=== PATIENT | male | born 1935 | race Asian ===

== ENCOUNTER 2022-11-11 04:49 | Inpatient (IN) | payer MEDICARE, OTHER ==
[~2022-11-11] VITALS: Ht 177.8 cm; Wt 73.9 kg
[~2022-11-11 04:49] MED LIST: AZITHROMYCIN 500MG/ D5W 250ML IVPB **ER PYXIS ONLY IV ONE; CEFTRIAXONE /D5W 50ML IVPB **ER PYXIS IV ONE
[2022-11-11] MEDS ORDERED: LEVO500T90 PO (04:58)
[2022-11-11 05:09] LABS: CHLORIDE 107 mmol/L (98-107); POTASSIUM 3.6 mmol/L (3.5-5.1); SODIUM SERUM 137 mmol/L (136-145)
[2022-11-11 05:10] LABS: CALCIUM 7.9 mg/dL (8.5-10.1); CARBON DIOXIDE 15 mmol/L (21-32); CREATININE 5.2 mg/dL (0.6-1.3); GLUCOSE 142 mg/dL (74-106); UREA NITROGEN, BLOOD 74 mg/dL (7-18)
[2022-11-11 05:11] LABS: ALANINE AMINOTRANSFERASE 33 U/L (16-63); ALBUMIN 2.4 g/dL (3.4-5.0); ALKALINE PHOSPHATASE 72 U/L (50-136); ASPARTATE AMINOTRANSFERASE 32 U/L (15-37); BILIRUBIN,DIRECT 0.3 mg/dL (0.0-0.2); BILIRUBIN,TOTAL 0.5 mg/dL (0.2-1.0); NT-PRO BNP 1356 pg/mL (0-125)
[2022-11-11 05:12] LABS: TOTAL PROTEIN, SERUM 6.4 g/dL (6.4-8.2)
[2022-11-11 05:17] LABS: *CLARITY,URINE SLIGHTLY CLOUDY (CLEAR); *COLOR,URINE YELLOW (YELLOW)
[2022-11-11 05:18] LABS: *BILIRUBIN,URIN NEGATIVE (NEGATIVE); *BLOOD, URINE 2+ (NEGATIVE); *KETONES,URINE NEGATIVE (NEGATIVE); *PROTEIN,URINE 2+ (NEGATIVE); *UROBILINOGEN,URINE 0.2 E.U./dl (NORMAL); LEUKOCYTE ESTERASE ,URINE 2+ (NEGATIVE); NITRITE, URINE NEGATIVE (NEGATIVE); PH,URINE 5.5 (5.0-8.0); UGLUCOSE NEGATIVE (NEGATIVE)
[2022-11-11 05:19] LABS: BACTERIA,URINE FEW /HPF (NONE SEEN); RBC,URINE TNTC /HPF (0-3); SQUAMOUS EPITHELIAL CELL,UR FEW /HPF (NONE SEEN); WBC,URINE TNTC /HPF (0-3)
[2022-11-11 05:20] LABS: HEMOGLOBIN 10.2 g/dL (12.5-16.3); RED BLOOD CELL COUNT(AUTO) 3.35 MIL/uL (4.06-5.63); WHITE BLOOD COUNT (AUTO) 8.4 K/uL (3.6-10.2)
[2022-11-11 05:21] LABS: HEMATOCRIT 30.1 % (36.7-47.1); MEAN CORPUSCULAR HEMOGLOBIN 30.5 uug (23.8-33.4); MEAN CORPUSCULAR HGB CONC 34 g/dL (32.5-36.3); MEAN CORPUSCULAR VOLUME 89.8 fL (73.0-96.2); PLATELET COUNT (AUTO) 173 K/uL (152-348); RED CELL DISTRIBUTION WIDTH 13.6 % (12.1-16.2)
[2022-11-11 05:22] LABS: BASOPHILS % (AUTO) 0.2 % (0.0-2.0); LYMPHOCYTES % (AUTO) 2.5 % (20.5-51.5); MONOCYTES % (AUTO) 7.4 % (0.0-11.0); NEUTROPHILS % (AUTO) 89.9 % (38.5-71.5)
[2022-11-11] MEDS ORDERED: ENOXAPARIN SODIUM 80 MG/0.8 ML DISP.SYRIN SQ ONE (05:30)
[2022-11-11] MEDS ORDERED: ENOXAPARIN SODIUM 100 MG/ML DISP.SYRIN SQ ONE (05:31)
[2022-11-11] MEDS ORDERED: ASPIRIN 81 MG TAB.CHEW ONE (05:33)
[2022-11-11] MEDS ORDERED: REMEDY ESSENTIAL ZINC PASTE 113 GM TP PRN (05:45)
[2022-11-11] MEDS ORDERED: ONDANSETRON 4 MG/2 ML VIAL IV PRN (05:45)
[2022-11-11] MEDS ORDERED: MAGNESIUM HYDROXIDE 30 ML LIQUID UDC PO PRN (05:45)
[2022-11-11] MEDS ORDERED: HEPARIN/D5W 25000 UNITS/500 ML BAG IV ONE (05:45)
[2022-11-11] MEDS ORDERED: HEPARIN/D5W DRIP 500 ML ONE (06:42)
[2022-11-11] MEDS ORDERED: HEPARIN SODIUM,PORCINE 5,000 UNITS/ML VIAL ONE (07:17)
[2022-11-11] MEDS ORDERED: PANTOPRAZOLE SODIUM 40 MG VIAL IV SCH (09:00)
[2022-11-11] MEDS: ASPIRIN 81 MG TAB.CHEW PO SCH (09:41)
[2022-11-11 10:15] VITALS: BP 92/59; TEMP 97.6; O2SAT 97
[2022-11-11] MEDS ORDERED: VANCOMYCIN IV 1,000 MG in IV DEXTROSE 5% 250 ML IV ONE (11:30)
[2022-11-11 11:51] VITALS: BP 104/66; TEMP 97.9; O2SAT 98
[2022-11-11] MEDS: MEROPENEM 500 MG in IV NORMAL SALINE 50 ML IV SCH ×2 (14:00→15:02)
[2022-11-11 15:40] LABS: BASOPHILS % (AUTO) 0.3 % (0.0-2.0); EOSINOPHILS % (AUTO) 0.1 % (0.0-7.0); HEMOGLOBIN 9.4 g/dL (12.5-16.3); LYMPHOCYTES % (AUTO) 9.7 % (20.5-51.5); MEAN CORPUSCULAR HEMOGLOBIN 30.8 uug (23.8-33.4); MEAN CORPUSCULAR HGB CONC 34 g/dL (32.5-36.3); MEAN CORPUSCULAR VOLUME 91.9 fL (73.0-96.2); MONOCYTES # (AUTO) 0.8 K/uL (0.1-1.30); MONOCYTES % (AUTO) 7.6 % (0.0-11.0); NEUTROPHILS # (AUTO) 8.4 K/uL (1.8-8.9); NEUTROPHILS % (AUTO) 82.3 % (38.5-71.5); PLATELET COUNT (AUTO) 155 K/uL (152-348); RED BLOOD CELL COUNT(AUTO) 3.05 MIL/uL (4.06-5.63); RED CELL DISTRIBUTION WIDTH 13.6 % (12.1-16.2); WHITE BLOOD COUNT (AUTO) 10.2 K/uL (3.6-10.2)
[2022-11-11 15:51] LABS: DIFFERENTIAL COMMENT 1
[2022-11-11 16:00] VITALS: BP 103/68; TEMP 98.1; O2SAT 97
[2022-11-11 16:06] LABS: IRON, SERUM 14 ug/dL (50-175)
[2022-11-11 16:37] LABS: FERRITIN 1314 ng/mL (26-388)
[2022-11-11] MEDS: IV NS 1000 ML 1,000 ML IV PRN (19:00)
[2022-11-11 20:00] VITALS: BP 114/71; TEMP 98.1; O2SAT 97
[2022-11-11] MEDS: ZOLPIDEM 5 MG TABLET PO PRN (21:18)
[2022-11-11 22:06] LABS: *BILIRUBIN,URIN NEGATIVE (NEGATIVE); *BLOOD, URINE 2+ (NEGATIVE); *KETONES,URINE NEGATIVE (NEGATIVE); *PROTEIN,URINE 2+ (NEGATIVE); *UROBILINOGEN,URINE 0.2 E.U./dl (NORMAL); LEUKOCYTE ESTERASE ,URINE 2+ (NEGATIVE); NITRITE, URINE POSITIVE (NEGATIVE); UGLUCOSE NEGATIVE (NEGATIVE)
[2022-11-11 22:35] LABS: *CLARITY,URINE CLEAR (CLEAR); *COLOR,URINE LIGHT YELLOW (YELLOW)
[2022-11-11 22:38] LABS: BACTERIA,URINE MODERATE /HPF (NONE SEEN); RBC,URINE 20-50 /HPF (0-3); WBC,URINE 50-80 /HPF (0-3)
[2022-11-11 22:39] LABS: SQUAMOUS EPITHELIAL CELL,UR MODERATE /HPF (NONE SEEN)
[2022-11-11 22:50] LABS: *CREATININE,URINE 36.1 mg/dL (30-125)
[2022-11-11 23:20] LABS: *URINE TOTAL PROTEIN RANDOM 57.2 mg/dL (<150/24HR)
[2022-11-12] VITALS: BP 106/68; TEMP 98; O2SAT 97
[2022-11-12] MEDS ORDERED: HEPARIN SODIUM,PORCINE/PF 50 UNIT/5 ML SYR IV ONE (01:45)
[2022-11-12] MEDS: MEROPENEM 500 MG in IV NORMAL SALINE 50 ML IV SCH ×2 (02:00→14:35)
[2022-11-12 04:33] VITALS: BP 121/76; TEMP 99; O2SAT 99
[2022-11-12] MEDS: PANTOPRAZOLE SODIUM 40 MG TABLET.DR PO SCH (07:07)
[2022-11-12 09:17] LABS: BASOPHILS % (AUTO) 0.3 % (0.0-2.0); EOSINOPHILS % (AUTO) 0.5 % (0.0-7.0); HEMATOCRIT 28.6 % (36.7-47.1); HEMOGLOBIN 9.6 g/dL (12.5-16.3); LYMPHOCYTES # (AUTO) 0.6 K/uL (0.8-4.8); LYMPHOCYTES % (AUTO) 8.9 % (20.5-51.5); MEAN CORPUSCULAR HEMOGLOBIN 30.8 uug (23.8-33.4); MEAN CORPUSCULAR HGB CONC 34 g/dL (32.5-36.3); MEAN CORPUSCULAR VOLUME 91.8 fL (73.0-96.2); MONOCYTES # (AUTO) 0.5 K/uL (0.1-1.30); MONOCYTES % (AUTO) 6.8 % (0.0-11.0); NEUTROPHILS % (AUTO) 83.5 % (38.5-71.5); PLATELET COUNT (AUTO) 155 K/uL (152-348); RED BLOOD CELL COUNT(AUTO) 3.12 MIL/uL (4.06-5.63); RED CELL DISTRIBUTION WIDTH 13.8 % (12.1-16.2); WHITE BLOOD COUNT (AUTO) 7.2 K/uL (3.6-10.2)
[2022-11-12] MEDS: METOPROLOL SUCCINATE XL 25 MG TAB.SR.24H PO SCH (09:20)
[2022-11-12] MEDS: ASPIRIN 81 MG TAB.CHEW PO SCH (09:20)
[2022-11-12 09:36] LABS: DIFFERENTIAL COMMENT 1
[2022-11-12 09:42] LABS: ALANINE AMINOTRANSFERASE 26 U/L (16-63); ALBUMIN 2.1 g/dL (3.4-5.0); ALKALINE PHOSPHATASE 63 U/L (50-136); ASPARTATE AMINOTRANSFERASE 27 U/L (15-37); BILIRUBIN,TOTAL 0.3 mg/dL (0.2-1.0); CALCIUM 7.8 mg/dL (8.5-10.1); CARBON DIOXIDE 15 mmol/L (21-32); CHLORIDE 110 mmol/L (98-107); CREATININE 4.9 mg/dL (0.6-1.3); GLUCOSE 144 mg/dL (74-106); MAGNESIUM 1.9 mg/dL (1.8-2.4); PHOSPHOROUS 4.6 mg/dL (2.5-4.9); SODIUM SERUM 139 mmol/L (136-145); TOTAL PROTEIN, SERUM 5.6 g/dL (6.4-8.2); UREA NITROGEN, BLOOD 66 mg/dL (7-18); VANCOMYCIN,RANDOM 10.5 ug/mL (18.0-26.0)
[2022-11-12] MEDS ORDERED: VANCOMYCIN IV 750 MG in IV DEXTROSE 5% 250 ML IV ONE (10:00)
[2022-11-12 11:13] VITALS: BP 113/67; TEMP 98.7; O2SAT 98
[2022-11-12] MEDS: HEPARIN/D5W DRIP 500 ML IV PRN ×2 (11:24→11:26)
[2022-11-12] MEDS: IV NS 1000 ML 1,000 ML IV PRN (14:40)
[2022-11-12 15:10] VITALS: BP 113/70; TEMP 98.2; O2SAT 97
[2022-11-12 20:00] VITALS: BP 137/65; TEMP 98; O2SAT 99
[2022-11-12] MEDS: ATORVASTATIN 40 MG TABLET PO SCH (20:39)
[2022-11-12] MEDS: ACETAMINOPHEN 325 MG TABLET PO PRN (20:39)
[2022-11-12] MEDS: ZOLPIDEM 5 MG TABLET PO PRN ×2 (20:39→22:07)
[2022-11-13] VITALS: BP 122/68; TEMP 97.9; O2SAT 97
[2022-11-13] MEDS: MEROPENEM 500 MG in IV NORMAL SALINE 50 ML IV SCH ×2 (01:34→13:03)
[2022-11-13] MEDS: IV NS 1000 ML 1,000 ML IV PRN (03:42)
[2022-11-13 04:30] VITALS: BP_SYST 126; BP_SYST 76; BP_DIAS 70; TEMP 98.2; O2SAT 97
[2022-11-13] MEDS: PANTOPRAZOLE SODIUM 40 MG TABLET.DR PO SCH (06:14)
[2022-11-13 07:12] LABS: BASOPHILS % (AUTO) 0.4 % (0.0-2.0); EOSINOPHILS # (AUTO) 0.1 K/uL (0.0-0.7); EOSINOPHILS % (AUTO) 0.8 % (0.0-7.0); HEMATOCRIT 24.6 % (36.7-47.1); HEMOGLOBIN 8.3 g/dL (12.5-16.3); LYMPHOCYTES # (AUTO) 0.8 K/uL (0.8-4.8); LYMPHOCYTES % (AUTO) 12.4 % (20.5-51.5); MEAN CORPUSCULAR HEMOGLOBIN 30.9 uug (23.8-33.4); MEAN CORPUSCULAR HGB CONC 34 g/dL (32.5-36.3); MEAN CORPUSCULAR VOLUME 91.2 fL (73.0-96.2); MONOCYTES # (AUTO) 0.6 K/uL (0.1-1.30); NEUTROPHILS # (AUTO) 4.7 K/uL (1.8-8.9); NEUTROPHILS % (AUTO) 76.4 % (38.5-71.5); PLATELET COUNT (AUTO) 159 K/uL (152-348); RED CELL DISTRIBUTION WIDTH 13.7 % (12.1-16.2); WHITE BLOOD COUNT (AUTO) 6.2 K/uL (3.6-10.2)
[2022-11-13 07:21] LABS: DIFFERENTIAL COMMENT 1
[2022-11-13 07:24] LABS: CALCIUM 8.1 mg/dL (8.5-10.1); CARBON DIOXIDE 16 mmol/L (21-32); CHLORIDE 111 mmol/L (98-107); CREATININE 4.7 mg/dL (0.6-1.3); GLUCOSE 112 mg/dL (74-106); MAGNESIUM 1.9 mg/dL (1.8-2.4); PHOSPHOROUS 4.4 mg/dL (2.5-4.9); POTASSIUM 4.1 mmol/L (3.5-5.1); SODIUM SERUM 139 mmol/L (136-145); UREA NITROGEN, BLOOD 58 mg/dL (7-18)
[2022-11-13] MEDS: ASPIRIN 81 MG TAB.CHEW PO SCH (08:54)
[2022-11-13] MEDS: METOPROLOL SUCCINATE XL 25 MG TAB.SR.24H PO SCH (08:55)
[2022-11-13] MEDS ORDERED: VANCOMYCIN IV 750 MG in IV DEXTROSE 5% 250 ML IV ONE (10:00)
[2022-11-13 11:35] VITALS: BP_SYST 106; BP_DIAS 61; BP_DIAS 71; TEMP 97.9; O2SAT 97
[2022-11-13] MEDS: SODIUM BICARBONATE 8.4% 100 MEQ in IV D5 1/2 NS 1000 ML 1,000 ML IV PRN (13:01)
[2022-11-13] MEDS: ACETAMINOPHEN 325 MG TABLET PO PRN ×2 (14:14→21:34)
[2022-11-13] MEDS: ALPRAZOLAM 0.25 MG TABLET PO PRN ×2 (14:14→21:34)
[2022-11-13 16:00] VITALS: BP 115/69; TEMP 98.6; O2SAT 97
[2022-11-13 20:00] VITALS: BP 121/75; TEMP 98.6; O2SAT 97
[2022-11-13] MEDS: ATORVASTATIN 40 MG TABLET PO SCH (21:14)
[2022-11-14] VITALS: BP 128/68; TEMP 97.9; O2SAT 97
[2022-11-14] MEDS: MEROPENEM 500 MG in IV NORMAL SALINE 50 ML IV SCH ×2 (01:11→13:46)
[2022-11-14 05:00] VITALS: BP 125/66; TEMP 98.2; O2SAT 97
[2022-11-14] MEDS: PANTOPRAZOLE SODIUM 40 MG TABLET.DR PO SCH (06:18)
[2022-11-14 08:09] LABS: CALCIUM 7.5 mg/dL (8.5-10.1); CARBON DIOXIDE 21 mmol/L (21-32); CHLORIDE 114 mmol/L (98-107); CREATININE 4.8 mg/dL (0.6-1.3); GLUCOSE 112 mg/dL (74-106); MAGNESIUM 1.8 mg/dL (1.8-2.4); PHOSPHOROUS 4.7 mg/dL (2.5-4.9); POTASSIUM 4.6 mmol/L (3.5-5.1); SODIUM SERUM 144 mmol/L (136-145); UREA NITROGEN, BLOOD 58 mg/dL (7-18)
[2022-11-14] MEDS: SODIUM BICARBONATE 8.4% 100 MEQ in IV D5 1/2 NS 1000 ML 1,000 ML IV PRN (08:31)
[2022-11-14] MEDS: METOPROLOL SUCCINATE XL 25 MG TAB.SR.24H PO SCH (08:31)
[2022-11-14] MEDS: ASPIRIN 81 MG TAB.CHEW PO SCH (08:31)
[2022-11-14 08:56] LABS: BASOPHILS % (AUTO) 0.6 % (0.0-2.0); DIFFERENTIAL COMMENT 0; EOSINOPHILS # (AUTO) 0.1 K/uL (0.0-0.7); EOSINOPHILS % (AUTO) 1.3 % (0.0-7.0); HEMATOCRIT 21.6 % (36.7-47.1); LYMPHOCYTES # (AUTO) 1.1 K/uL (0.8-4.8); LYMPHOCYTES % (AUTO) 15.2 % (20.5-51.5); MEAN CORPUSCULAR HEMOGLOBIN 30.6 uug (23.8-33.4); MEAN CORPUSCULAR HGB CONC 34 g/dL (32.5-36.3); MEAN CORPUSCULAR VOLUME 90.3 fL (73.0-96.2); MONOCYTES # (AUTO) 0.8 K/uL (0.1-1.30); MONOCYTES % (AUTO) 11.8 % (0.0-11.0); NEUTROPHILS % (AUTO) 71.1 % (38.5-71.5); PLATELET COUNT (AUTO) 149 K/uL (152-348); RED CELL DISTRIBUTION WIDTH 13.8 % (12.1-16.2)
[2022-11-14 09:04] LABS: RED BLOOD CELL COUNT(AUTO) 2.39 MIL/uL (4.06-5.63)
[2022-11-14 09:05] LABS: HEMOGLOBIN 7.3 g/dL (12.5-16.3)
[2022-11-14 12:00] VITALS: BP 103/60; TEMP 97.9; O2SAT 98
[2022-11-14 16:09] VITALS: BP 103/57; TEMP 97.8; O2SAT 100
[2022-11-14] MEDS: SODIUM CITRATE/CITRIC ACID (500/334MG/5ML) UDC 30 ML SOLUTION PO SCH ×2 (17:35→20:28)
[2022-11-14 20:00] VITALS: BP 103/54; TEMP 98; O2SAT 100
[2022-11-14] MEDS: ATORVASTATIN 40 MG TABLET PO SCH (20:28)
[2022-11-14] MEDS: ALPRAZOLAM 0.25 MG TABLET PO PRN (20:28)
[2022-11-14] MEDS: ACETAMINOPHEN 325 MG TABLET PO PRN (20:28)
[2022-11-15] VITALS: BP 105/52; TEMP 98.2; O2SAT 97
[2022-11-15] MEDS: PANTOPRAZOLE SODIUM 40 MG TABLET.DR PO SCH (06:32)
[2022-11-15 07:22] LABS: BASOPHILS # (AUTO) 0.1 K/UL (0.0-0.2); BASOPHILS % (AUTO) 0.8 % (0.0-2.0); EOSINOPHILS # (AUTO) 0.1 K/uL (0.0-0.7); LYMPHOCYTES # (AUTO) 1.1 K/uL (0.8-4.8); MONOCYTES # (AUTO) 0.7 K/uL (0.1-1.30); NEUTROPHILS # (AUTO) 4.5 K/uL (1.8-8.9); WHITE BLOOD COUNT (AUTO) 6.5 K/uL (3.6-10.2)
[2022-11-15 07:25] LABS: EOSINOPHILS % (AUTO) 1.5 % (0.0-7.0); LYMPHOCYTES % (AUTO) 16.9 % (20.5-51.5); MEAN CORPUSCULAR HGB CONC 35 g/dL (32.5-36.3); MONOCYTES % (AUTO) 11.6 % (0.0-11.0); NEUTROPHILS % (AUTO) 69.2 % (38.5-71.5); PLATELET COUNT (AUTO) 141 K/uL (152-348); RED CELL DISTRIBUTION WIDTH 13.4 % (12.1-16.2)
[2022-11-15 07:29] LABS: HEMATOCRIT 19.4 % (36.7-47.1); RED BLOOD CELL COUNT(AUTO) 2.15 MIL/uL (4.06-5.63)
[2022-11-15 07:30] LABS: DIFFERENTIAL COMMENT 1; HEMOGLOBIN 6.7 g/dL (12.5-16.3)
[2022-11-15 07:35] LABS: CALCIUM 8.3 mg/dL (8.5-10.1); CARBON DIOXIDE 21 mmol/L (21-32); CHLORIDE 113 mmol/L (98-107); CREATININE 4.4 mg/dL (0.6-1.3); GLUCOSE 105 mg/dL (74-106); PHOSPHOROUS 3.9 mg/dL (2.5-4.9); POTASSIUM 4.4 mmol/L (3.5-5.1); SODIUM SERUM 145 mmol/L (136-145); UREA NITROGEN, BLOOD 54 mg/dL (7-18)
[2022-11-15 07:47] LABS: NEUTROPHILS % (MANUAL) 0 % (42-75)
[2022-11-15 07:48] LABS: LYMPHOCYTES % (MANUAL) 0 % (20-40)
[2022-11-15] MEDS: SODIUM CITRATE/CITRIC ACID (500/334MG/5ML) UDC 30 ML SOLUTION PO SCH ×3 (09:18→16:24)
[2022-11-15] MEDS: METOPROLOL SUCCINATE XL 25 MG TAB.SR.24H PO SCH (09:18)
[2022-11-15] MEDS: ASPIRIN 81 MG TAB.CHEW PO SCH (09:18)
[2022-11-15 11:48] VITALS: BP 97/55; TEMP 98.4; O2SAT 98
[2022-11-15] MEDS ORDERED: ATOR40TA PO (11:50)
[2022-11-15] MEDS ORDERED: CITR30SO6 PO (11:50)
[2022-11-15] MEDS ORDERED: PANT40TA49 PO (11:50)
[2022-11-15] MEDS ORDERED: METO-356 PO (11:50)
[2022-11-15] MEDS: ALPRAZOLAM 0.25 MG TABLET PO PRN (14:32)
[2022-11-15 15:44] VITALS: BP 106/59; TEMP 98.7; O2SAT 97
[2022-11-15 16:29] VITALS: BP 106/59; TEMP 98.7
[2022-11-15 19:50] VITALS: BP 107/53; TEMP 98.2
[2022-11-15 21:21] VITALS: BP 144/69; TEMP 98.2
[2022-11-16 08:06] LABS: COMPLEMENT, C3 SERUM 98 mg/dL (82-167); COMPLEMENT, C4 SERUM 20 mg/dL (12-38); IMMUNOGLOBULIN A, SERUM 123 mg/dL (61-437); IMMUNOGLOBULIN M, SERUM 128 mg/dL (15-143)
[2022-11-16 09:08] LABS: A/G RATIO 0.8 (0.7-1.7); ALBUMIN 2.1 g/dL (2.9-4.4); ALPHA-1-GLOBULIN 0.3 g/dL (0.0-0.4); ALPHA-2-GLOBULIN 0.6 g/dL (0.4-1.0); BETA GLOBULIN 0.6 g/dL (0.7-1.3); GLOBULIN, TOTAL 2.5 g/dL (2.2-3.9); M-SPIKE 0.3 g/dL (Not Observed)
[2022-11-16 11:06] LABS: *ANTI-SCLERODERMA-70 AB <0.2 AI (0.0-0.9); *RNP ANTIBODIES <0.2 AI (0.0-0.9); *SJOGREN'S ANTI-SS-A <0.2 AI (0.0-0.9); *SJOGREN'S ANTI-SS-B <0.2 AI (0.0-0.9); *SMITH ANTIBODIES <0.2 AI (0.0-0.9); ANTI-DNA(DS) AB, QN 1 IU/mL (0-9); ANTI-NUCLEAR AB DIRECT Negative (Negative)
== END 2022-11-15 20:05 | disposition home health service (06) | DRG 871 ==
LOC: ER 04:57 → TELE3 08:25 → MEDSURG3 11-15 09:55
PROVIDERS: ADMIT Nurse Practitioner Acute Care; ATTEND Nurse Practitioner Acute Care
PROC: 05H633Z Insertion of Infusion Device into Left Subclavian Vein, Percutaneous Approach (ICD-10-PCS; 2022-11-14)
PROC: B547ZZA Ultrasonography of Left Subclavian Vein, Guidance (ICD-10-PCS; 2022-11-14)
PROC: 30233N1 Transfusion of Nonautologous Red Blood Cells into Peripheral Vein, Percutaneous Approach (ICD-10-PCS; principal; 2022-11-15)
DX: A41.9 Sepsis, unspecified organism (principal); G93.41 Metabolic encephalopathy; I21.A1 Myocardial infarction type 2; N39.0 Urinary tract infection, site not specified; E87.20 Acidosis, unspecified; N17.9 Acute kidney failure, unspecified; N18.5 Chronic kidney disease, stage 5; Z28.310 Unvaccinated for COVID-19; E86.0 Dehydration; F41.9 Anxiety disorder, unspecified; D63.8 Anemia in other chronic diseases classified elsewhere; R65.20 Severe sepsis without septic shock; Z86.16 Personal history of COVID-19; N28.1 Cyst of kidney, acquired; E83.9 Disorder of mineral metabolism, unspecified; N18.9 Chronic kidney disease, unspecified; B96.89 Other specified bacterial agents as the cause of diseases classified elsewhere; Z86.19 Personal history of other infectious and parasitic diseases
CPT/HCPCS: 36415; 70030-TC; 71045; 76770; 82784; 82785; 82803; 83550; 83605; 83735; 83970; 84100; 84155; 84165; 84300; 84443; 84484; 85025; 85610; 85730; 86038; 86060; 86160; 86162; 86850; 86900; 86901; 86920; 87040; 93307; A4663; C9113; G0378; J0456; J0696; J1644; J1650; J2185; J3370; J3490; J7040; J7050; P9016